=== PATIENT | female | born 1970 | race African-American/Black ===

== ENCOUNTER 2024-03-11 03:13 | Inpatient (IN) | payer BC, OTHER ==
[~2024-03-11] VITALS: Ht 170.2 cm; Wt 110.4 kg
[2024-03-11 04:03] LABS: Basophils # (auto) 0.1 10 ^3/uL (0-0.2); Basophils % (auto) 0.8 % (0.0-2.0); Eosinophils # (auto) 0 10 ^3/uL (0-0.8); Eosinophils % (auto) 0.6 % (0.0-7.0); Hematocrit 39.5 % (36.0-46.0); Lymphocytes # (auto) 3.3 10 ^3/uL (0.4-5.4); Lymphocytes % (auto) 42.4 % (10.0-50.0); Mean Corpuscular Hemoglobin 28.9 pg (28.0-32.0); Mean Corpuscular Hgb Conc. 32.8 g/dL (32.0-36.0); Monocytes # (auto) 0.7 10 ^3/uL (0-1.3); Monocytes % (auto) 9.1 % (0.0-12.0); Neutrophils # (auto) 3.7 10 ^3/uL (1.6-8.6); Neutrophils % (auto) 47.1 % (37.0-80.0); Nucleated Red Blood Cells % 0.1 %; Red Blood Cells 4.49 10^6/uL (4.0-5.20); Red Cell Distribution Width 14.5 % (11.8-14.3); White Blood Cell 7.8 10^3/uL (4.4-10.8)
[2024-03-11 04:15] LABS: INR 0.96 (0.9-1.15); Partial Thromboplastin Time 26.7 SEC (24.5-34.5); Prothrombin Time 10.2 sec (9.3-11.8)
[2024-03-11 04:33] LABS: Alanine Aminotransferase 13 U/L (7-40); Albumin 4.2 g/dL (3.2-4.8); Alkaline Phosphatase 65 U/L (46-116); Anion Gap 6 (5-15); Aspartate Aminotransferase 10 U/L (13-40); BUN/Creatinine Ratio 10.1 (10.0-20.0); Blood Urea Nitrogen 9 mg/dL (9-23); Calcium 9.5 mg/dL (8.7-10.4); Carbon Dioxide 24 mmol/L (20-30); Chloride 106 mmol/L (98-107); Glucose 98 mg/dL (74-106); Magnesium 1.9 mg/dL (1.6-2.6); Potassium 3.5 mmol/L (3.5-5.1); Sodium 136 mmol/L (136-145)
[2024-03-11 04:34] LABS: Bilirubin, Total 0.7 mg/dL (0.2-1.0); Total Protein 7.7 g/dL (5.7-8.2)
[2024-03-11] MEDS: ASPirin 325 MG TAB PO ONE (04:46)
[2024-03-11 07:56] VITALS: PULSE 90; RESP 18; O2SAT 97
[2024-03-11] MEDS ORDERED: ONDANSETRON HCL 4 MG/2 ML VIAL IV PRN (09:30)
[2024-03-11] MEDS ORDERED: MORPHINE SULFATE INJ 2 MG/ml SYRG IV PRN ×2 (09:30)
[2024-03-11] MEDS ORDERED: ACETAMINOPHEN 325 MG TAB PO PRN (09:30)
[2024-03-11] MEDS ORDERED: NITROGLYCERIN 0.4 MG SL TAB SL PRN (09:30)
[2024-03-11] MEDS: ASPirin 81 mg TAB PO SCH (09:56)
[2024-03-11] MEDS: CLOTRIMAZOLE 1 % CREAM 15GM TOP SCH (10:00)
[2024-03-11 10:08] LABS: Triglycerides 172 mg/dL (< 150)
[2024-03-11 10:09] LABS: LDL Cholesterol 154 mg/dL (< 100)
[2024-03-11 10:10] LABS: Cholesterol 225 mg/dL (< 200); HDL Cholesterol 46 mg/dL (40-59)
[2024-03-11] MEDS: MAGNESIUM SULFATE 1GM/100ML 100 ML IV SCH (10:46)
[2024-03-11] MEDS: hydrALAZINE HCL 20 MG/ML VL IV ONE (10:47)
[2024-03-11] MEDS: amLODIPine BESYLATE 5 MG TAB PO ONE (10:47)
[2024-03-11] MEDS: ENOXAPARIN SOD 40 MG/0.4 ML SYRINGE SC SCH (10:48)
[2024-03-11 12:56] VITALS: BP 159/85; PULSE 101; RESP 19; TEMP 98.6; O2SAT 98
[2024-03-11] MEDS: hydrALAZINE HCL 20 MG/ML VL IV PRN (13:54)
[2024-03-11 17:00] VITALS: BP 148/79; PULSE 102; RESP 19; TEMP 99; O2SAT 98
[2024-03-11 20:00] VITALS: PULSE 103; O2SAT 97
[2024-03-11] MEDS: HYDROcodone-ACET 5/325MG TAB PO PRN (20:19)
[2024-03-11 20:23] LABS: Urine Bacteria None Seen /hpf (None Seen)
[2024-03-11 21:00] VITALS: BP 161/82; PULSE 101; RESP 16; TEMP 98.4; O2SAT 97
[2024-03-11 21:04] LABS: Urine Blood 1+ /uL (Negative); Urine Clarity Clear (Clear); Urine Color Light-Yellow (Yellow); Urine Protein, UAD Negative (Negative); Urine Specific Gravity 1.014 (1.001-1.035); Urine Urobilinogen Normal (Negative); Urine WBC <1 /hpf (0 - 5); Urine pH 7.5 (5.0-9.0)
[2024-03-11] MEDS: ATORVASTATIN 20 MG TAB PO SCH (21:10)
[2024-03-12 01:00] VITALS: BP 128/74; PULSE 82; RESP 18; TEMP 98.2; O2SAT 98
[2024-03-12 05:00] VITALS: BP 149/74; PULSE 81; RESP 16; TEMP 98.4; O2SAT 99
[2024-03-12 07:27] LABS: Basophils # (auto) 0 10 ^3/uL (0-0.2); Basophils % (auto) 0.8 % (0.0-2.0); Eosinophils # (auto) 0 10 ^3/uL (0-0.8); Eosinophils % (auto) 0.6 % (0.0-7.0); Hemoglobin 12.9 g/dL (12.2-16.2); Lymphocytes # (auto) 2.2 10 ^3/uL (0.4-5.4); Lymphocytes % (auto) 36.3 % (10.0-50.0); Mean Corpuscular Hemoglobin 29.2 pg (28.0-32.0); Mean Corpuscular Hgb Conc. 33.2 g/dL (32.0-36.0); Mean Corpuscular Volume 87.9 fL (80.0-100.0); Monocytes # (auto) 0.5 10 ^3/uL (0-1.3); Monocytes % (auto) 8.5 % (0.0-12.0); Neutrophils # (auto) 3.3 10 ^3/uL (1.6-8.6); Neutrophils % (auto) 53.8 % (37.0-80.0); Red Blood Cells 4.43 10^6/uL (4.0-5.20); Red Cell Distribution Width 14.5 % (11.8-14.3); White Blood Cell 6.2 10^3/uL (4.4-10.8)
[2024-03-12 07:36] LABS: Alanine Aminotransferase 10 U/L (7-40); Alkaline Phosphatase 60 U/L (46-116); Anion Gap 5 (5-15); Aspartate Aminotransferase < 8 U/L (13-40); BUN/Creatinine Ratio 9.5 (10.0-20.0); Blood Urea Nitrogen 8 mg/dL (9-23); Calcium 9.3 mg/dL (8.7-10.4); Carbon Dioxide 25 mmol/L (20-30); Chloride 106 mmol/L (98-107); Glucose 88 mg/dL (74-106); Potassium 3.7 mmol/L (3.5-5.1); Sodium 136 mmol/L (136-145)
[2024-03-12 07:37] LABS: Bilirubin, Total 1.2 mg/dL (0.2-1.0); Total Protein 6.8 g/dL (5.7-8.2)
[2024-03-12 08:00] VITALS: PULSE 74
[2024-03-12 09:00] VITALS: BP 155/82; PULSE 90; RESP 17; TEMP 97.5; O2SAT 98
[2024-03-12] MEDS: amLODIPine BESYLATE 5 MG TAB PO SCH (09:34)
[2024-03-12] MEDS ORDERED: LISI20TA56 PO (10:11)
[2024-03-12] MEDS ORDERED: ATOR20TA50 PO (10:13)
[2024-03-12 13:33] VITALS: BP 155/82; PULSE 95; RESP 8; TEMP 36.4
== END 2024-03-12 15:17 | disposition home or self-care (01) | DRG 916 ==
LOC: ER 03:13 → TELE 09:26 → TELE-CENTR 09:27
PROVIDERS: ADMIT Internal Medicine Pulmonary Disease; ATTEND Internal Medicine Pulmonary Disease
DX: T78.49XA Other allergy, initial encounter (principal); I10 Essential (primary) hypertension; E66.01 Morbid (severe) obesity due to excess calories; E78.5 Hyperlipidemia, unspecified; Z90.710 Acquired absence of both cervix and uterus; Z68.38 Body mass index [BMI] 38.0-38.9, adult; Z82.5 Family history of asthma and other chronic lower respiratory diseases; X58.XXXA Exposure to other specified factors, initial encounter
CPT/HCPCS: 36415; 71045; 80053; 80061; 81001; 83036; 83735; 83880; 84443; 84484; 85025; 85610; 85730; 93005; 93306; G0378; J2405